=== PATIENT | male | born 1995 | race Caucasian/White ===

== ENCOUNTER 2024-02-20 13:17 | Emergency (ER) | payer OTHER ==
[~2024-02-20] VITALS: Ht 172.7 cm; Wt 92.6 kg
[2024-02-20] MEDS ORDERED: OXYCODONE HYDROC5 M1 PO (13:28)
[2024-02-20 14:23] VITALS: BP 91/76
== END 2024-02-20 14:25 | disposition home or self-care (01) ==
LOC: ED 13:17
DX: S29.011A Strain of muscle and tendon of front wall of thorax, initial encounter (principal); X50.1XXA Overexertion from prolonged static or awkward postures, initial encounter